=== PATIENT | male | born 1970 | race Hispanic/Latino ===

== ENCOUNTER 2020-04-01 10:16 | Emergency (ER) | payer BC, OTHER ==
[~2020-04-01] VITALS: Ht 180.3 cm; Wt 99.8 kg
--- NOTE | 2020-04-01 11:01 | Diagnostic Imaging Report ---
EXAMINATION: CXR 1 W - [facility] INDICATION: ^pain COMPARISON: None FINDINGS: AP view TUBES and LINES: None. LUNGS: Lungs are well inflated. Lungs are clear. There is no evidence of pneumonia or pulmonary edema. PLEURA: No pleural effusion or pneumothorax. HEART AND MEDIASTINUM: The cardiomediastinal silhouette is unremarkable. BONES AND SOFT TISSUES: No acute osseous lesion. Soft tissues are unremarkable. UPPER ABDOMEN: No free air under the diaphragm. IMPRESSION: No acute thoracic radiographic abnormality. Signed by: Evan Schmidt MD on 04/01/2020 10:58 AM
[2020-04-01] MEDS ORDERED: LISINOPRIL-HCT1 EAC1 (11:08)
[2020-04-01] MEDS ORDERED: METOPROLOL SUCC50 MG PO (11:08)
--- OUTSIDE RECORDS SUMMARY | 2020-04-01 11:23 | XMS REPORT | Continuity of Care Document ---
Author [facility] t Organization [facility] Address [address] [place] [phone] Phone Unavailable Care Team Providers Care Ophthalmic Nurse Name Role Phone KRZYSZTOF DEAN Attphys Unavailable Problems This patient has no known problems. Allergies, Adverse Reactions, Alerts This patient has no known allergies or adverse reactions. Medications This patient has no known medications. Procedures This patient has no known procedures. Results Test Description Test Time Test Comments Results Result Comments Source [facility] 1 W [facility] 2020-04-01 10:57:00 [place] [address] Patient Name: JUANITA CHI III MR #: [id number] : 1970 Age/Sex: 49/M Req #: [id number] Adm Physician: Ordered by: KRZYSZTOF DEAN MD Report #: [id number] Location: [facility] Room/Bed: Procedure: [id number] HOPD/CXR 1 - [facility] Exam Date: 04/01/20 Exam Time: 1058 REPORT STATUS: Signed EXAMINATION: CXR 1 W - [facility] INDICATION: pain COMPARISON: None FINDINGS: AP view TUBES and LINES: None. LUNGS: Lungs are well inflated. Lungs are clear. There is no evidence of pneumonia or pulmonary edema. PLEURA: No pleural effusion or pneumothorax. HEART AND MEDIASTINUM: The cardiomediastinal silhouette is unremarkable. BONES AND SOFT TISSUES: No acute osseous lesion. Soft tissues are unremarkable. UPPER ABDOMEN: No free air under the diaphragm. IMPRESSION: No acute thoracic radiographic abnormality. Signed by: Bipin Branham MD on 04/01/2020 10:58 AM Dictated By: BIPIN BRANHAM MD 105 Transcribed By: SABAS on 04/01/20 105 COPY TO: KRZYSZTOF DEAN MD
--- NOTE | 2020-04-01 11:39 | Emergency Department Note ---
History of Present Illnes History of Present Illness Chief Complaint: Chest Pain History of Present Illness This is a 49 year old male Chief Complaint Comment Reports that this m orning his eyes became blood shot, he had a hot feeling come over him, and he has had a problem wiht his high blood pressure and since he woke up he has had mid sternal chest tightness like someone is sitting on his chest and he states that it feels like it is hard to take a deep breath. Pt states that he thought it was his anxiety but it is different than his normal anxiety. His mother has heart problems and he does not have a regular doctor but takes blood pressure medication. . Historian: Patient Arrival Mode: Car Onset (how long ago): day(s) (2) Location: chest Quality: dull Radiation: Denies non-radiation, Denies back, Denies neck, Denies extremity, Denies abdomen, Denies periumbilical, Denies flank, Denies proximal, Denies distal, Denies other Severity: moderate Onset quality: gradual Duration (how long): day(s) (2) Timing of current episode: intermittent Progression: waxing and waning Chronicity: new Context: Denies recent illness, Denies recent surgery, Denies recent i mmobilization, Denies recent travel, Denies trauma/injury, Denies new medications, Denies hx of DVT/PE, Denies non-compliance w/ medications, Denies other Relieving factors: none Exacerbating factors: none Associated symptoms: Reports denies other symptoms Treatments prior to arrival: none Past Medical/Family History Physician Review I have reviewed the patient's past medical and family history. Any updates have been documented here. Past Medical History Recent Fever: No Clinical Suspicion of Infectio: No New/Unexplained Change in Ment: No Past Medical History: Hypertension, Anxiety Past Surgical History: None Social History Smoking Cessation: Current every day smoker Counseling Performed: Yes Alcohol Use: Occasional Any Illegal Drug Use: No Physically hurt or threatened: No Other Last Tetanus: NA Any Pre-Existing Lines (PICC,: No Review of Systems Review of Systems Constitutional: Reports no symptoms EENTM: Reports no symptoms Cardiovascular: Reports as per HPI Respiratory: Reports no symptoms Gastrointestinal: Reports no symptoms Genitourinary: Reports no symptoms Musculoskeletal: Reports no symptoms Integumentary: Reports no symptoms Neurological: Reports no symptoms Psychological: Reports no symptoms Endocrine: Reports no symptoms Hematological/Lymphatic: Reports no symptoms Physical Exam Related Data Allergies: Coded Allergies: No Known Allergies (Unverified , 03/18/15) Triage Vital Signs Vital Signs Date Time Temp Pulse Resp B/P (MAP) Pulse Ox O2 Delivery O2 Flow Rate FiO2 04/01/20 10:27 97.8 81 18 173/98 100 Room Air Vital signs reviewed: Yes Physical Exam CONSTITUTIONAL Constitutional: Present well-developed, Present well-nourished HENT HENT: Present normocephalic, Present atraumatic, Present oropharynx clear/mois t, Present nose normal HENT L/R: Present left ext ear normal, Present right ext ear normal EYES Eyes: Reports PERRL, Reports conjunctivae normal NECK Neck: Present ROM normal PULMONARY Pulmonary: Present effort normal, Present breath sounds normal CARDIOVASCULAR Cardiovascular: Present regular rhythm, Present heart sounds normal, Present capillary refill normal, Present normal rate GASTROINTESTINAL Abdominal: Present soft, Present nontender, Present bowel sounds normal GENITOURINARY Genitourinary: Present exam deferred SKIN Skin: Present warm, Present dry MUSCULOSKELETAL Musculoskeletal: Present ROM normal NEUROLOGICAL Neurological: Present alert, Present oriented x 3, Present no gross motor or sensory deficits PSYCHOLOGICAL Psychological: Present mood/affect normal, Present judgement normal Results Laboratory Lab results reviewed: Yes Imaging Imaging results reviewed: Yes Procedures 12 Lead ECG Interpretation ECG Interpretation : ECG: ECG 1 Pelletizer Operator: Interpreted by ED physician Date: Apr 01, 2020 Time: 11:36 Rhythm: sinus rhythm Rate: normal BPM: 83 QRS axis: normal ST segments normal: Yes T waves normal: Yes Assessment & Plan Medical Decision Making MDM angina cad Reassessment Reassessment time: 11:38 Reassessment better Assessment & Plan Final Impression: (1) Chest pain (2) Uncontrolled hypertension Depart Disposition: HOME, SELF-CARE Last Vital Signs Date Time Temp Pulse Resp B/P (MAP) Pulse Ox O2 Delivery O2 Flow Rate FiO2 04/01/20 11:06 80 18 133/93 98 Room Air 04/01/20 10:27 97.8 Home Meds Reported Medications Lisinopril/Hydrochlorothiazide (LISINOPRIL-HCTZ 20-25 MG TAB) 1 Each Tablet, DAILY 04/01/20 Metoprolol Succinate (METOPROLOL SUCCINATE) 50 Mg Tab.er.24h, 50 MG PO BID, MG 04/01/20 KRZYSZTOF DEAN MD Apr 01, 2020 11:39
[2020-04-01 11:43] VITALS: BP 142/85
== END 2020-04-01 11:52 | disposition home or self-care (01) ==
LOC: FSED 10:16
DX: R07.9 Chest pain, unspecified (principal); I10 Essential (primary) hypertension; F41.9 Anxiety disorder, unspecified; F17.210 Nicotine dependence, cigarettes, uncomplicated
CPT/HCPCS: 71045; 80053; 84484; 85025; 93005; 99284

== ENCOUNTER 2025-04-08 18:08 | Emergency (ER) | payer OTHER ==
[~2025-04-08] VITALS: Ht 180.3 cm; Wt 98.4 kg
[~2025-04-08 18:08] MED LIST: LISINOPRIL-HCT1 EAC1; METOPROLOL SUCC50 MG PO
[2025-04-08] MEDS ORDERED: CLONIDINE HCL 0.1 MG TAB PO ONE (19:15)
[2025-04-08] MEDS: ASPIRIN 325 MG TAB PO ONE (19:27)
[2025-04-08 20:30] VITALS: PULSE 67; RESP 18; TEMP 98.7
[2025-04-08 20:38] VITALS: BP 147/94; PULSE 67; RESP 18; TEMP 98.7; O2SAT 98
== END 2025-04-08 20:40 | disposition home or self-care (01) ==
LOC: FSED 18:23
DX: R07.89 Other chest pain (principal); I10 Essential (primary) hypertension; F41.9 Anxiety disorder, unspecified
CPT/HCPCS: 71046; 80053; 84484; 85025; 93005; 99284